=== PATIENT | female | born 1980 | race Caucasian/White ===

== ENCOUNTER 2017-10-23 01:11 | Emergency (ER) | payer MEDICAID ==
[2017-10-23 04:16] LABS: POC GLUCOSE 91 mg/dL (70-99)
[2017-10-23] MEDS: hydrOXYzine PAMOATE 25 MG CAPSULE PO (04:38)
[2017-10-23] MEDS: MUPIROCIN 2 % TOPICAL CREAM 15GM TUBE. TP (04:44)
== END 2017-10-23 04:00 | disposition home or self-care (01) ==
LOC: ER 01:11
DX: R21 Rash and other nonspecific skin eruption (principal); E11.9 Type 2 diabetes mellitus without complications; E05.90 Thyrotoxicosis, unspecified without thyrotoxic crisis or storm; E03.9 Hypothyroidism, unspecified; Z88.0 Allergy status to penicillin; Z90.49 Acquired absence of other specified parts of digestive tract; Z90.710 Acquired absence of both cervix and uterus; Z98.51 Tubal ligation status; Z88.5 Allergy status to narcotic agent; Z88.4 Allergy status to anesthetic agent
CPT/HCPCS: 82962; 99283; Q0177